=== PATIENT | female | born 1945 | race Caucasian/White ===

== ENCOUNTER 2016-03-18 12:38 | Emergency (ER) | payer MEDICARE, OTHER ==
[2016-03-18 12:48] VITALS: BP 165/99
--- NOTE | 2016-03-18 13:24 | UC ---
General HPI - HPI Summary HPI Summary: SUDDEN ONSET OF SHARP, SHOOTING LEFT SIDED FACIAL PAIN LAST NIGHT. EPISODES LASTING UP TO SEVERAL MINUTES THEN RESOLVE. NO CLEAR TRIGGER. NO NEW MEDS OR RECENT TRAUMA. NO FEVER. NO ARREDONDO. NO NAUSEA. NO URI SX. - History of Current Complaint Chief Complaint: UCGeneralIllness Stated Complaint: FACIAL PAIN Time Seen by Provider: 03/18/16 12:49 Hx Obtained From: Patient Onset/Duration: Sudden Onset, Lasting Hours, Still Present Timing: Intermittent Episodes Lasting: - MINUTES Onset Severity: Moderate Current Severity: None Pain Intensity: 5 Associated Signs & Symptoms: Negative: Dizziness, Fever, Headache, Nausea, Recent Medication Changes, Trauma, Weakness - Allergy/Home Medications Allergies/Adverse Reactions: Allergies Allergy/AdvReac Type Severity Reaction Status Date / Time No Known Allergies Allergy Verified 04/18/12 09:16 Home Medications: Home Medications Zoledronic Acid* [Zometa*] 03/18/16 [History] PMH/Surg Hx/FS Hx/Imm Hx Endocrine History Of: Reports: Thyroid Disease - CANCER Cancer History Of: Reports: Breast Cancer - left 1997 - Surgical History Surgical History: Yes Surgery Procedure, Year, and Place: stem cell replacement. total hip transplant left - Family History Known Family History: Positive: Other - CANCER - Social History Alcohol Use: Occasionally Substance Use Type: None Smoking Status (MU): Never Smoked Tobacco Review of Systems Constitutional: Negative Skin: Negative Respiratory: Negative Cardiovascular: Negative Gastrointestinal: Negative Neurological: Paresthesia - LEFT SIDE OF FACE All Other Systems Reviewed And Are Negative: Yes Physical Exam Triage Information Reviewed: Yes Appearance: Well-Appearing, No Pain Distress, Well-Nourished Vital Signs: Initial Vital Signs Temp 97.8 F 03/18/16 12:43 Pulse 114 03/18/16 12:43 Resp 18 03/18/16 12:43 BP 165/99 03/18/16 12:43 Pulse Ox 99 03/18/16 12:43 Vital Signs Reviewed: Yes Eyes: Positive: Conjunctiva Clear ENT: Positive: Hearing grossly normal, Pharynx normal, TMs normal Neck: Positive: Supple, Nontender, No Lymphadenopathy Respiratory Exam: Normal Cardiovascular Exam: Normal Abdomen Description: Positive: Soft Musculoskeletal: Positive: No Edema Neurological: Positive: Alert Psychological: Positive: Age Appropriate Behavior Skin: Negative: rashes Course/Dx - Differential Dx - Multi-Symptom Provider Diagnoses: TRIGEMINAL NEURALGIA Discharge - Discharge Plan Condition: Stable Disposition: HOME Prescriptions: Carbamazepine [Carbamazepine ER] 100 mg PO BID #60 tab Hydrocodone-Acetaminophen [Lorcet 5-325 mg] 1 tab PO QID PRN #20 tab MDD 4 PRN Reason: Pain Patient Education Materials: Trigeminal Neuralgia (ED) Referrals: Mona Martin MD [Primary Care Provider] - If Needed Additional Instructions: TRIGEMINAL NEURALGIA Trigeminal neuralgia (TN) is a condition that causes sudden and severe pain in parts of the face. TN is caused by a problem with the trigeminal nerve, which is a nerve that runs from the brain to the face. What are the symptoms of trigeminal neuralgia? TN causes sharp and stabbing pain in the cheek, lower face, or around the eye. The pain lasts a few seconds to a few minutes, and usually happens on only one side of the face. TN can also cause muscle spasms in the face that happen at the same time as the pain. Most people with TN have repeated episodes of pain. Often, certain movements or activities make the pain attacks happen. These can include: - Touching the face - Chewing - Talking - Brushing the teeth - Smiling or frowning - Cold air on the face Will I need tests? Maybe. Your doctor or nurse should be able to tell if you have TN by learning about your symptoms and doing an exam. He or she might do tests to get more information about your TN or what's causing it. These tests can include an MRI or CT scan of your brain. These are imaging tests that can create pictures of your brain. How is trigeminal neuralgia treated? TN is usually treated with medicine. Doctors can use different types of medicines to treat TN. Most often doctors prescribe a type of medicine normally used to prevent seizures. These medicines quiet the nerve signals that cause pain in TN. For most people, the medicine helps reduce the number of TN attacks they have and makes their pain less severe. But if medicines don't help enough or cause too many side effects, your doctor might talk with you about other treatment options. These include different types of surgical procedures that quiet the nerve and make it less likely to fire. These surgical treatments might help with symptoms, but side effects sometimes happen, including numbness or pain in the face. I HAVE SENT A RX FOR CARBAMAZEPINE TO YOUR PHARMACY. THIS IS OFTEN USED TO HELP WITH THE SYMPTOMS OF TRIGEMINAL NEURALGIA. PLEASE DISCUSS THIS DIAGNOSIS AND MEDICATION WITH DRS. MARTIN AND ROMÁN IT CAN INTERFERE WITH YOUR THYROID MEDICATION AND TAMOXIFEN. HYDROCODONE/APAP GIVEN TO HELP WITH PAIN FOR NOW.
== END 2016-03-18 13:40 | disposition home or self-care (01) ==
LOC: UCEAST 12:38
DX: G50.0 Trigeminal neuralgia (principal)
CPT/HCPCS: 99212; G0463

== ENCOUNTER 2017-01-17 09:23 | Emergency (ER) | payer MEDICARE, OTHER ==
[2017-01-17 09:37] VITALS: BP 165/87
--- NOTE | 2017-01-17 09:59 | UC ---
Respiratory Complaint HPI - HPI Summary HPI Summary: Pt presents with a 2 days history of sinus pain/pressure/congestion, headache, and dry cough. She says that she has a history of sinusitis for many years. Currently undergoing tx for breast cancer. Has not tried anything OTC. Denies SOB, chest pain, N/V/D/C, or sore throat. - History of Current Complaint Chief Complaint: UCRespiratory Stated Complaint: URI Time Seen by Provider: 01/17/17 09:59 Hx Obtained From: Patient Onset/Duration: Gradual Onset Severity Initially: Mild Severity Currently: Moderate Pain Intensity: 5 Pain Scale Used: 0-10 Numeric Character: Cough: Nonproductive Associated Signs And Symptoms: Positive: Chills, URI - Allergies/Home Medications Allergies/Adverse Reactions: Allergies Allergy/AdvReac Type Severity Reaction Status Date / Time BANDAIDS Allergy Rash And Uncoded 01/17/17 09:37 Itching PMH/Surg Hx/FS Hx/Imm Hx Previously Healthy: Yes Cancer History: Breast Cancer - Surgical History Surgical History: Yes Surgery Procedure, Year, and Place: stem cell replacement. total hip transplant left. LEFT BREAST LUMPECTOMY 2000 - Family History Known Family History: Positive: Other - CANCER - Social History Alcohol Use: Occasionally Substance Use Type: None Smoking Status (MU): Never Smoked Tobacco Review of Systems Constitutional: Chills Skin: Negative Eyes: Negative ENT: Nasal Discharge, Sinus Congestion, Sinus Pain/Tenderness Respiratory: Cough Cardiovascular: Negative Gastrointestinal: Negative Is Patient Immunocompromised?: Yes All Other Systems Reviewed And Are Negative: Yes Physical Exam Triage Information Reviewed: Yes Appearance: Well-Appearing, Well-Nourished Vital Signs: Initial Vital Signs Temp 96.8 F 01/17/17 09:33 Pulse 112 01/17/17 09:33 Resp 18 01/17/17 09:33 BP 165/87 01/17/17 09:33 Pulse Ox 97 01/17/17 09:33 Vital Signs Reviewed: Yes Eyes: Positive: Conjunctiva Clear ENT: Positive: Hearing grossly normal, Pharynx normal, Nasal congestion, Nasal drainage, TMs normal, Sinus tenderness, Uvula midline. Negative: Pharyngeal erythema, TM bulging, TM dull, TM red, Tonsillar swelling, Tonsillar exudate Neck: Positive: Supple, Nontender, No Lymphadenopathy Respiratory: Positive: Chest non-tender, Lungs clear, Normal breath sounds, No respiratory distress, No accessory muscle use Cardiovascular: Positive: RRR, No Murmur, Pulses Normal Neurological: Positive: Alert Psychological: Positive: Age Appropriate Behavior Skin: Negative: rashes UC Diagnostic Evaluation - Laboratory O2 Sat by Pulse Oximetry: 97 Respiratory Course/Dx - Course Course Of Treatment: Sinusitis - Amoxicillin - Differential Dx/Diagnosis Differential Diagnosis/HQI/PQRI: Asthma, Bronchitis, Influenza, Sinusitis Provider Diagnoses: Sinusitis. Acute bronchitis Discharge - Discharge Plan Condition: Stable Disposition: HOME Prescriptions: Amoxicillin PO (*) [Amoxicillin 500 MG CAP*] 500 mg PO Q12H #20 cap Patient Education Materials: Sinusitis (ED) Referrals: Mona Martin MD [Primary Care Provider] - Additional Instructions: 1) Mucinex OTC twice a day in addition to antibiotic 2) Rest and drink plenty of water! If you develop a fever, SOB, chest pain, new or worsening symptoms - please call your PCP or go to the ED. Your blood pressure was high at todays visit. Please see your primary provider within 4 weeks for recheck and re-evaluation.
== END 2017-01-17 10:15 | disposition home or self-care (01) ==
LOC: UCEAST 09:23
DX: J32.9 Chronic sinusitis, unspecified (principal); J20.9 Acute bronchitis, unspecified; C50.919 Malignant neoplasm of unspecified site of unspecified female breast
CPT/HCPCS: 99212; G0463

== ENCOUNTER 2017-02-07 09:17 | Emergency (ER) | payer MEDICARE, OTHER ==
[2017-02-07 09:31] VITALS: BP 149/86
--- NOTE | 2017-02-07 10:21 | UC ---
Respiratory Complaint HPI - HPI Summary HPI Summary: 71 y/o female presents to the urgent care c/o dry cough and sinus congestion for the past 3 weeks. Sinus pain with ARREDONDO is 5/10. She has been taking OTC meds w /o any improvement of symptoms. Pt denies fever, SOB, chest pain, N/V/D. - History of Current Complaint Hx Obtained From: Patient ?: No Onset/Duration: Gradual Onset, Lasting Weeks - 3 weeks, Still Present, Worse Since - last week Timing: Constant Severity Initially: Mild Severity Currently: Moderate Pain Intensity: 5 Pain Scale Used: 0-10 Numeric Character: Cough: Nonproductive Aggravating Factors: Recumbent Position Alleviating Factors: OTC Meds Associated Signs And Symptoms: Positive: URI, Nasal Congestion, Sinus Discomfort. Negative: Fever, Chills, Pleuritic Chest Pain - Risk Factors Pulmonary Embolism Risk Factors: Negative Cardiac Risk Factors: Negative Pseudomonas Risk Factors: Negative Tuberculosis Risk Factors: Negative <Jailene Aguilar - Last Filed: 02/08/17 19:30> <Windy Williamson - Last Filed: 02/09/17 09:14> - History of Current Complaint Chief Complaint: UCRespiratory Stated Complaint: COUGH Time Seen by Provider: 02/07/17 10:20 - Allergies/Home Medications Allergies/Adverse Reactions: Allergies Allergy/AdvReac Type Severity Reaction Status Date / Time BANDAIDS Allergy Rash And Uncoded 02/07/17 09:27 Itching PMH/Surg Hx/FS Hx/Imm Hx Previously Healthy: Yes Endocrine History: Hypothyroidism Cancer History: Breast Cancer Other Cancer History: Thyroid Cancer - Surgical History Surgical History: Yes Surgery Procedure, Year, and Place: stem cell replacement. total hip transplant left. LEFT BREAST LUMPECTOMY 2000 - Family History Family History: Breast cancer - Social History Occupation: Retired Lives: With Family Alcohol Use: Occasionally Substance Use Type: None Smoking Status (MU): Never Smoked Tobacco <Jailene Aguilar - Last Filed: 02/08/17 19:30> Review of Systems Constitutional: Negative Skin: Negative Eyes: Negative ENT: Negative, Nasal Discharge, Sinus Congestion, Sinus Pain/Tenderness Respiratory: Cough Cardiovascular: Negative Gastrointestinal: Negative Genitourinary: Negative Motor: Negative Neurovascular: Negative Musculoskeletal: Negative Neurological: Negative Psychological: Negative Is Patient Immunocompromised?: No All Other Systems Reviewed And Are Negative: Yes <Jailene Aguilar - Last Filed: 02/08/17 19:30> Physical Exam Triage Information Reviewed: Yes Vital Signs: Initial Vital Signs Temp 98.5 F 02/07/17 09:28 Pulse 115 02/07/17 09:28 Resp 16 02/07/17 09:28 BP 149/86 02/07/17 09:28 Pulse Ox 96 02/07/17 09:28 - Additional Comments Vitals: reviewed General: Well developed, well-nourished female patient with NAD. Head and face: Normocephalic and atraumatic, Positive tenderness over the frontal and maxillary sinuses.. Eyes: PERRLA, EOMI x 2. Normal conjunctiva. No eye discharge. ENT: Ears and TM with normal limits. Nose: with yellowish discharge and erythematous mucosa. Pharynx with erythema , no exudate. Neck: Supple, no JVD, no carotid bruits and no lymphadenopathy. Lungs: clear, no rales, no rhonchi, no wheezes. CVS: RRR, S1 and S2 present no murmurs or gallops appreciated. Abdomen: soft nontender with positive bowel sounds. Extremities: no edema noted. Neuro: WNL. Skin: warm and dry <Jailene Aguilar - Last Filed: 02/08/17 19:30> Vital Signs: Initial Vital Signs Temp 98.5 F 02/07/17 09:28 Pulse 115 02/07/17 09:28 Resp 16 02/07/17 09:28 BP 149/86 02/07/17 09:28 Pulse Ox 96 02/07/17 09:28 <Windy Williamson - Last Filed: 02/09/17 09:14> Diagnostic Evaluation - Laboratory O2 Sat by Pulse Oximetry: 96 <Jailene Aguilar - Last Filed: 02/08/17 19:30> Respiratory Course/Dx - Course Course Of Treatment: 71 y/o female presents to the urgent care c/o dry cough and sinus congestion for the past 3 weeks. Sinus pain with ARREDONDO is 5/10. She has been taking OTC meds w/o any improvement of symptoms. Pt denies fever, SOB, chest pain, N/V/D.Hx obtained. Pt with acute sinusitis on examination.Pt with 3 weeks of symptoms getting worse. Pt Rx Augmentin PO and flonase nasal spray. Tessalon PO for cough. Pt's BP is elevated today advised to decrease salt in diet, monitor BP and f/u with PCP for further management. Advised if she develoeps SOB, chest pain,to go immediately to the ER. Discharge instructions explained to Pt. Advised to Return to the clinic or PCP if symptoms if not improvement.Pt understood and agreed with plan of care.Left the clinic ambulating and hemodynamically stable - Differential Dx/Diagnosis Differential Diagnosis/HQI/PQRI: Asthma, Bronchitis, Influenza, Laryngitis, Lower Resp Infection, Sinusitis, Other - pharyngitis, URI Provider Diagnoses: 1- acute bacterial pharyngitis. 2-Cough <Jailene Aguilar - Last Filed: 02/08/17 19:30> Discharge <Jailene Aguilar - Last Filed: 02/08/17 19:30> <Windy Williamson - Last Filed: 02/09/17 09:14> - Discharge Plan Condition: Stable Disposition: HOME Prescriptions: Amoxicillin/Clavulanate TAB* [Augmentin TAB 875*] 875 mg PO BID #20 tab Benzonatate CAP* [Tessalon 100 MG CAP*] 100 mg PO TID PRN #15 cap PRN Reason: Cough Fluticasone NASAL SPRAY 50MCG* [Flonase NASAL SPRAY 50MCG*] 2 spray BOTH NARES DAILY #1 btl Patient Education Materials: Sinusitis (ED), Low Sodium Diet (ED) Referrals: Mona Martin MD [Primary Care Provider] - If Needed Additional Instructions: 1- Please increase fluid intake and rest. take full course of antibiotic to avoid resistance 2-Use Flonase as directed to help drain fluid. Also buy saline drops to clear sinuses 3-Take Tassalon tabs PO to alleviates cough. Increase fluid intake, rest, use a humidifier at night time 4-Return to the clinic or PCP if symptoms do not improve for further management and treatment 5- Your BP is elevated today, please decrease salt in your diet, monitor your BP and if it continues to be elevated f/u with your PCP for further management Attestation Statement User Type: Provider - I was available for consult. This patient was seen by the JOSIAH. The patient was not presented to, seen by, or examined by me. -Lanre <Windy Williamson - Last Filed: 02/09/17 09:14>
== END 2017-02-07 10:46 | disposition home or self-care (01) ==
LOC: UCEAST 09:17
DX: J02.9 Acute pharyngitis, unspecified (principal); R05 Cough; E03.9 Hypothyroidism, unspecified; Z85.3 Personal history of malignant neoplasm of breast; Z85.850 Personal history of malignant neoplasm of thyroid; Z96.642 Presence of left artificial hip joint
CPT/HCPCS: 99212; G0463

== ENCOUNTER 2017-03-14 08:00 | Day surgery (SDC) | payer MEDICARE, OTHER ==
[~2017-03-14 08:00] MED LIST: Acetaminophen TAB* 325 MG PO PRN; Buffered Lidocaine 0.9% SYRIN* 5 ML/SYR SYRINGE INTRADERM ONE; Midazolam* 1 MG/ML 2 ML VIAL (2 MG) ONE
[2017-03-14 10:19] VITALS: BP 136/65
--- NOTE | 2017-03-14 10:50 | OP ---
DATE OF OPERATION: 03/14/2017. DATE OF : 1945. SURGEON: Johnathan Garcia M.D. PREOPERATIVE DIAGNOSIS: Cataract right eye. POSTOPERATIVE DIAGNOSIS: Cataract right eye. OPERATIVE PROCEDURE: Extracapsular cataract extraction with intraocular lens implant right eye. PROCEDURE: The patient was brought to the operating room after being given 1/2% Alcaine with epineph rine drops in the preoperative area. The eye was prepped and draped in the usual sterile fashion. S terile drape and eyelid speculum were placed. Again, topical 1/2% Alcaine with epinephrine was given . A paracentesis incision was made at the 9 o'clock position with the No.75 blade. Clear cornea inc ision 2.2 x 2.2-mm was created at the 12 o'clock position starting at the anterior limbus using the 2 .2-mm keratome. The anterior chamber was irrigated with 0.4 mL of 1% non-preservative intracameral l idocaine and filled with DisCoVisc. A capsulorrhexis was completed using the cystotome and the Utrat a forceps. Hydrodissection was performed with balanced salt solution. The lens nucleus was removed w ith the Phacoemulsification handpiece without incident. Cortex was removed with the irrigation-aspir ation handpiece. The capsular bag was re-inflated using DisCoVisc and an [id number] implant was insert ed with the shooter. The irrigation-aspiration handpiece was used to remove all residual DisCoVisc. The eye was refilled with balanced salt solution and the wound checked and found to be watertight. Topical Maxitrol drops were given. [id number]/[facility] #: [id number]
[2017-03-14] MEDS ORDERED: acetaZOLAMIDE TAB* 250 MG ONE (11:38)
[2017-03-14] MEDS ORDERED: Lidocaine 1% MPF* 2 ML VIAL ONE (11:38)
[2017-03-14] MEDS ORDERED: Povidone Iodine 5% OPTH* 30 ML BTL ONE (11:38)
[2017-03-14] MEDS ORDERED: Lidocaine 2% EPI 1:200000 MPF* 20 ML VIAL ONE (11:38)
[2017-03-14] MEDS ORDERED: Ketorolac 0.5% OPHTH (NF) 0.5 % 5 ML BTL ONE (11:38)
[2017-03-14] MEDS ORDERED: Phenylephrine 2.5% OPTH.SOL* 2 ML BTL ONE (11:38)
[2017-03-14] MEDS ORDERED: Neomycin/Polymy/Dex OPTH.SUSP* MAXITROL 0.1% 5 ML ONE (11:38)
[2017-03-14] MEDS ORDERED: Cyclopentolate 1% OPTH.SOL* 2 ML BTL ONE (11:38)
[2017-03-14] MEDS ORDERED: Proparacaine 0.5% OPHTH.SOL* 15 ML BTL ONE (11:39)
== END 2017-03-14 10:05 | disposition home or self-care (01) ==
LOC: OREAST 08:00
PROVIDERS: ATTEND Specialist
DX: H25.811 Combined forms of age-related cataract, right eye (principal); H43.813 Vitreous degeneration, bilateral; H44.23 Degenerative myopia, bilateral; Z85.3 Personal history of malignant neoplasm of breast; E03.9 Hypothyroidism, unspecified; Z85.850 Personal history of malignant neoplasm of thyroid; D69.6 Thrombocytopenia, unspecified; Z85.118 Personal history of other malignant neoplasm of bronchus and lung; B37.9 Candidiasis, unspecified
CPT/HCPCS: A9270-GY; J2250; V2632

== ENCOUNTER 2017-03-21 06:45 | Day surgery (SDC) | payer MEDICARE, OTHER ==
[~2017-03-21 06:45] MED LIST changes: -Midazolam* 1 MG/ML 2 ML VIAL (2 MG) ONE
[2017-03-21] MEDS ORDERED: Phenylephrine 2.5% OPTH.SOL* 2 ML BTL ONE (07:20)
[2017-03-21] MEDS ORDERED: Lidocaine 1% MPF* 2 ML VIAL ONE (07:20)
[2017-03-21] MEDS ORDERED: Lidocaine 2% EPI 1:200000 MPF* 20 ML VIAL ONE (07:20)
[2017-03-21] MEDS ORDERED: Povidone Iodine 5% OPTH* 30 ML BTL ONE (07:20)
[2017-03-21] MEDS ORDERED: Cyclopentolate 1% OPTH.SOL* 2 ML BTL ONE (07:20)
[2017-03-21] MEDS ORDERED: Ketorolac 0.5% OPHTH (NF) 0.5 % 5 ML BTL ONE (07:20)
[2017-03-21] MEDS ORDERED: Neomycin/Polymy/Dex OPTH.SUSP* MAXITROL 0.1% 5 ML ONE (07:20)
[2017-03-21] MEDS ORDERED: acetaZOLAMIDE TAB* 250 MG ONE (07:20)
[2017-03-21] MEDS ORDERED: Proparacaine 0.5% OPHTH.SOL* 15 ML BTL ONE (07:20)
[2017-03-21] MEDS ORDERED: Midazolam* 1 MG/ML 2 ML VIAL (2 MG) ONE (07:21)
[2017-03-21 08:29] VITALS: BP 118/77
--- NOTE | 2017-03-21 21:44 | OP ---
DATE OF OPERATION: 03/21/17 [facility] DATE OF : [birth year] SURGEON: Johnathan Garcia M.D. PREOPERATIVE DIAGNOSIS: Cataract, left eye. POSTOPERATIVE DIAGNOSIS: Cataract, left eye. OPERATIVE PROCEDURE: Extracapsular cataract extraction with IOL left eye. DESCRIPTION OF PROCEDURE: The patient was brought to the operating room after being given 1/2% Alcaine with epinephrine drops in the preoperative area. The eye was prepped and draped in the usual sterile fashion. Sterile drape and eyelid speculum were placed. Again, topical 1/2% Alcaine with epinephrine was given. A paracentesis incision was made at the 3 o'clock position with the No.75 blade. Clear cornea incision 2.2 x 2.2-mm was created at the 6 o'clock position starting at the anterior limbus using the 2.2-mm keratome. The anterior chamber was irrigated with 0.4 mL of 1% non-preservative intracameral lidocaine and filled with DisCoVisc. A capsulorrhexis was completed using the cystotome and the Utrata forceps. Hydrodissection was performed with balanced salt solution. The lens nucleus was removed with the Phacoemulsification handpiece without incident. Cortex was removed with the irrigation-aspiration handpiece. The capsular bag was re-inflated using DisCoVisc and an [id number] implant was inserted with the shooter. The irrigation-aspiration handpiece was used to remove all residual DisCoVisc. The eye was refilled with balanced salt solution and the wound checked and found to be watertight. Topical Maxitrol drops were given. [id number]/[facility] #: [id number] [facility]
== END 2017-03-21 08:31 | disposition home or self-care (01) ==
LOC: OREAST 06:45
PROVIDERS: ATTEND Specialist
DX: H25.812 Combined forms of age-related cataract, left eye (principal); H43.813 Vitreous degeneration, bilateral; H44.23 Degenerative myopia, bilateral; Z85.3 Personal history of malignant neoplasm of breast; Z85.850 Personal history of malignant neoplasm of thyroid; Z85.118 Personal history of other malignant neoplasm of bronchus and lung; Z85.830 Personal history of malignant neoplasm of bone
CPT/HCPCS: A9270-GY; J2250; V2632

== ENCOUNTER 2017-12-02 13:07 | Emergency (ER) | payer MEDICARE, OTHER ==
[2017-12-02 13:18] VITALS: BP 133/80
--- NOTE | 2017-12-02 13:19 | UC ---
Lower Extremity/Ankle HPI - HPI Summary HPI Summary: 72 yo female presents with left ankle pain. She tells me that 9 days ago she was helping her carry a piece of wood when she dropped it onto the front of her LEFT lower kearns/ankle. Says that it hurt for about 30 minutes, but then pain resolved. Since that time she has developed bruising and swelling to the area. She had been icing and elevating it daily. She is ambulatory and WBing without pain. She admits that she would not have come today, but her family is concerned about a fracture or blood clot. She does have a hx of cancer and is currently on tamoxifen. No recent travel, SOB, chest pain. - History of Current Complaint Chief Complaint: UCLowerExtremity Stated Complaint: ANKLE AND LEG INJURY Time Seen by Provider: 12/02/17 13:12 Hx Obtained From: Patient Severity Currently: None Pain Intensity: 0 Able to Bear Weight: Yes - Allergies/Home Medications Allergies/Adverse Reactions: Allergies Allergy/AdvReac Type Severity Reaction Status Date / Time BANDAIDS Allergy Rash And Uncoded 12/02/17 13:18 Itching PMH/Surg Hx/FS Hx/Imm Hx - Additional Past Medical History Additional PMH: BRCA Endocrine History: Hypothyroidism - Surgical History Surgical History: Yes Surgery Procedure, Year, and Place: triple stem cell replacement. total hip transplant left. LEFT BREAST LUMPECTOMY 2000 - Family History Known Family History: Positive: Other - CANCER Family History: Breast cancer - Social History Occupation: Retired Lives: With Family Alcohol Use: Occasionally Substance Use Type: None Smoking Status (MU): Never Smoked Tobacco Review of Systems Constitutional: Negative Skin: Bruising Respiratory: Negative Cardiovascular: Negative Neurovascular: Negative Musculoskeletal: Other: - Left ankle bruising and edema Neurological: Negative Psychological: Negative All Other Systems Reviewed And Are Negative: Yes Physical Exam - Summary Physical Exam Summary: GENERAL: NAD. WDWN. No pain distress. SKIN: LEFT ANKLE: Moderate edema and ecchymosis just superior to ankle joint and also at inferior lateral and medial malleolus. No palpable cord or calf edema. NECK: Supple. Nontender. No lymphadenopathy. CHEST: No accessory muscle use. Breathing comfortably and in no distress. CV: Pulses intact. Cap refill <2seconds MSK: LEFT ANKLE AND FOOT: FROM. NTTP. Jeff's negative. NEURO: Alert. PSYCH: Age appropriate behavior. Triage Information Reviewed: Yes Vital Signs: Initial Vital Signs Temp 97.7 F 12/02/17 13:12 Pulse 114 12/02/17 13:12 Resp 16 12/02/17 13:12 BP 133/80 12/02/17 13:12 Pulse Ox 96 12/02/17 13:12 Vital Signs Reviewed: Yes Lower Extremity Course/Dx - Course Course Of Treatment: XR: IMPRESSION: OSTEOARTHRITIS. NO ACUTE OSSEOUS INJURY. IF SYMPTOMS PERSIST, RECOMMEND REPEAT IMAGING. Suspect contusion of foot/ ankle. Given her history of cancer and injury, there is a concern for DVT - although the area of concern is more about the ankle than it is the leg. does not have ultrasound available at the time of this encounter. I discussed this with the pt and she did not want to go to the ED for an ultrasound. She will call her PCP tomorrow and schedule a visit for a recheck and potential outpatient U/S order. I advised her that if her swelling starts to come up her leg into her calf or if she develops pain, SOB, chest pain, or redness to the leg/ankle - to not wait and to go to the ED. She voiced understanding and is in agreement with the plan. - Differential Dx/Diagnosis Provider Diagnoses: Left ankle and foot contusion Discharge - Sign-Out/Discharge Documenting (check all that apply): Patient Departure All imaging exams completed and their final reports reviewed: Yes - Discharge Plan Condition: Stable Disposition: HOME Patient Education Materials: Foot Contusion (ED), Swollen Joint (ED) Referrals: Mona Martin MD [Primary Care Provider] - Additional Instructions: If you develop a fever, shortness of breath, chest pain, new or worsening symptoms - please call your PCP or go to the ED. 1) Please continue to elevate and ice your foot 2) Schedule a follow up appointment with your Primary Doctor for a recheck this week - Billing Disposition and Condition Condition: STABLE Disposition: Home
--- NOTE | 2017-12-02 13:52 | RAD ---
HISTORY: Pain. Crush inj COMPARISONS: None VIEWS: 3 , Frontal, lateral, and oblique views of the left ankle FINDINGS: BONE DENSITY: Normal. BONES: There is no displaced fracture. There are plantar and posterior calcaneal enthesophytes. JOINTS: There is osteoarthritis of the midfoot. ALIGNMENT: There is no dislocation. SOFT TISSUES: Unremarkable. OTHER FINDINGS: None. IMPRESSION: OSTEOARTHRITIS. NO ACUTE OSSEOUS INJURY. IF SYMPTOMS PERSIST, RECOMMEND REPEAT IMAGING.
== END 2017-12-02 14:15 | disposition home or self-care (01) ==
LOC: UCEAST 13:07
DX: S90.02XA Contusion of left ankle, initial encounter (principal); S90.32XA Contusion of left foot, initial encounter; W20.8XXA Other cause of strike by thrown, projected or falling object, initial encounter; Y93.89 Activity, other specified; Y92.9 Unspecified place or not applicable; M19.072 Primary osteoarthritis, left ankle and foot; Z96.642 Presence of left artificial hip joint; Z94.84 Stem cells transplant status; Z85.3 Personal history of malignant neoplasm of breast
CPT/HCPCS: 99211; G0463

== ENCOUNTER 2018-03-25 05:45 | Day surgery (SDC) | payer MEDICARE, OTHER ==
--- NOTE | 2018-03-15 13:23 | HP ---
PREOPERATIVE HISTORY AND PHYSICAL: DATE OF ADMISSION/SURGERY: 03/25/18 DATE OF OFFICE VISIT: 03/15/18 ATTENDING SURGEON: Dr. Nathan James.* (DICTATED BY JERROD JACKSON) PROCEDURE: Right knee arthroscopic surgery. CHIEF COMPLAINT: Right knee pain. HISTORY OF PRESENT ILLNESS: Jenna is a 72-year-old female, who presents to the clinic for right knee pain due to osteoarthritis. She describes a deep aching pain as well as locking and swelling. She has failed conservative measures to include knee exercises and therefore agreed to undergo a right knee arthroscopic surgery with Dr. James on 03/25/18 for possible treatment of meniscus or removal of loose body. PAST MEDICAL HISTORY: Breast cancer. She has spine and lung mets at the time of diagnosis. She was treated with chemo and stem cell transplant. She was on tamoxifen for 15+ years. History of thyroid cancer, treated with thyroidectomy and LEONARD. She also has seasonal allergies. PAST SURGICAL HISTORY: Cataracts, 2017; thyroidectomy, 2006; left total hip replacement, 2002; breast lumpectomy, 1997; triple stem cell transplant. The patient denies prior complications with anesthesia. MEDICATIONS: 1. Neurontin 300 mg 1 by mouth at night. 2. Fluticasone propionate 50 mcg per act 2 sprays each nostril as needed. 3. EpiPen 2-Freddie 0.3 mg/0.3 mL, 1 subcu as needed. 4. Zometa 4 mg/5 mL once every 6 months. 5. Tamoxifen 20 mg 1 by mouth daily. 6. Levothyroxine 125 mcg 1 tab x5 days, one-half tab x2 days. ALLERGIES: No known drug allergies. She is allergic to BEE STING and BAND- AIDS. FAMILY HISTORY: Positive for heart disease in her father and cancer. Denies family history of DVT or PE. SOCIAL HISTORY: She is . She resides in [place]. She is retired. She denies smoking. She reports occasional alcohol consumption. She denies illegal drug use. REVIEW OF SYSTEMS: A 14-point review of systems was reviewed with the patient. Positive for current complaint, otherwise negative. Denies fever, chills, chest pain, shortness of breath, history of DVT or PE, history of bleeding disorder. PHYSICAL EXAMINATION GENERAL: A 72-year-old well-developed, well-nourished female, in no acute distress. VITAL SIGNS: Height 67, weight 172, pulse 80, blood pressure 134/78, respiratory rate 20, temperature 97.5, BMI 26.9. HEENT: Normocephalic, atraumatic. PERRLA. Throat clear. NECK: Supple. PULMONARY: Lungs are clear to auscultation bilaterally. No wheezing, rhonchi, or rales. CARDIO: Regular rate and rhythm. S1, S2. No murmurs, gallops, or rubs. No edema. ABDOMEN: Positive bowel sounds. Soft, nontender. NEURO: Alert and oriented x3. Cranial nerves grossly intact. MUSCULOSKELETAL: Right lower extremity: Range of motion 3 to 130. Tenderness over the medial and lateral joint lines as well as the pes anserine area. Stable to varus and valgus stress. Stable Roseann and negative posterior drawer. Calf soft, nontender. Mild effusion. +5/5 strength to ankle dorsiflexion and plantarflexion. +2 DP pulse. Sensation intact to light touch distally. DIAGNOSTIC STUDIES: Previous x-rays revealed tricompartmental osteoarthritic changes with joint space narrowing and osteophyte formation. IMPRESSION: Right knee osteoarthritis. PLAN: The patient is scheduled to undergo a right knee arthroscopic surgery with Dr. James on 03/25/18. She will follow up 10 to 14 days postop for followup and suture removal. Percocet will be used for postop pain management. JERROD JACKSON [id number]/[facility] [place] #: [id number] [facility]ITALNatividad
[~2018-03-25 05:45] MED LIST changes: -Acetaminophen TAB* 325 MG PO PRN; -Buffered Lidocaine 0.9% SYRIN* 5 ML/SYR SYRINGE INTRADERM ONE; +Buffered Lidocaine 1% SYRIN* 1 ML/SYRINGE INTRADERM ONE
[2018-03-25] MEDS ORDERED: Dexamethasone IV* 4 MG/ML 1 ML (4 MG) IV SLOW PU ONE (06:00)
[2018-03-25] MEDS ORDERED: Famotidine IV* 10 MG/ML 2 ML (20 mg) IV ONE (06:00)
[2018-03-25] MEDS ORDERED: Lactated Ringers 1000 ML Bag* 1,000 ML IV SCH (06:00)
[2018-03-25] MEDS ORDERED: Famotidine IV* 10 MG/ML 2 ML (20 mg) ONE (06:37)
[2018-03-25] MEDS ORDERED: Dexamethasone IV* 4 MG/ML 1 ML (4 MG) ONE (06:37)
[2018-03-25] MEDS ORDERED: ceFAZolin 2 GM PREMIX in ORs 2 GM/50 ML BAG IVPB ONE (06:38)
[2018-03-25] MEDS ORDERED: Buffered Lidocaine 1% SYRIN* 1 ML/SYRINGE INTRADERM ONE (06:38)
[2018-03-25] MEDS ORDERED: EPINEPHRINE 1 MG/ML 1 ML VIAL ONE (07:12)
[2018-03-25] MEDS ORDERED: Midazolam* 1 MG/ML 2 ML VIAL (2 MG) ONE (07:20)
[2018-03-25] MEDS ORDERED: fentaNYL* 50 MCG/ML 2 ML VIAL (100 MCG VIAL) ONE (07:20)
[2018-03-25] MEDS ORDERED: Lidocaine 1% INJ* 10 MG/ML 30 ML SDV ONE (07:25)
[2018-03-25] MEDS ORDERED: Bupivacaine 0.25% W/EPI* 10 ML SDV ONE ×2 (07:25→07:26)
[2018-03-25] MEDS ORDERED: Propofol* 10 MG/ML 20 ML BTL ONE (07:47)
[2018-03-25] MEDS ORDERED: Lidocaine 2% PF * 5 ML VIAL ONE (07:47)
[2018-03-25] MEDS ORDERED: Naloxone* 0.4 MG/ML 1 ML VIAL IV PRN (07:50)
[2018-03-25] MEDS ORDERED: PROCHLORPERAZINE INJ 5 MG/ML 2 ML VIAL IV PRN (07:50)
[2018-03-25] MEDS ORDERED: DiMENhydriNATE IV* 50 MG/ML VIAL IV PUSH PRN (07:50)
[2018-03-25] MEDS ORDERED: HYDROcodone/ACETAMIN 5-325 MG* 1 TAB PO PRN (07:50)
[2018-03-25] MEDS ORDERED: fentaNYL* 50 MCG/ML 2 ML VIAL (100 MCG VIAL) IV PRN (07:50)
[2018-03-25] MEDS ORDERED: Ketorolac INJ* 30 MG/ML 1 ML VIAL IV PRN (07:50)
[2018-03-25] MEDS ORDERED: Acetaminophen TAB* 325 MG PO PRN (07:50)
[2018-03-25] MEDS ORDERED: Phenylephrine INJ* 10 MG/ML 1 ML VIAL (10 MG) ONE (07:53)
[2018-03-25] MEDS ORDERED: Dexamethasone IV* 4 MG/ML 5 ML VIAL (20 MG) ONE (08:02)
[2018-03-25] MEDS ORDERED: Ondansetron INJ* 2 MG/ML VIAL ONE (08:05)
[2018-03-25 09:51] VITALS: BP 140/91
--- NOTE | 2018-03-25 12:01 | OP ---
OPERATIVE REPORT: DATE OF OPERATION: 03/25/18 DATE OF : 43 SURGEON: Nathan James MD. SLIMER: JERROD Cardenas. ANESTHESIA: General. PRE-OP DIAGNOSIS: Osteoarthritis with lateral meniscus tear, right knee. POST-OP DIAGNOSES: 1. Osteoarthritis with lateral meniscus tear, right knee. 2. Loose bodies, right knee. OPERATIVE PROCEDURE: 1. Right knee arthroscopy. 2. Partial lateral meniscectomy. 3. Removal of loose bodies. 4. Chondroplasty. ESTIMATED BLOOD LOSS: Minimal. COMPLICATIONS: None. SUMMARY: Ms. Elias is a 72-year-old female who has known osteoarthritic changes of the knee. She w ould have a complaint of occasionally the knee getting caught and stuck and having significant pain w hen that occurs. The knee would then be painful and swollen for several days and then it would resol ve and then the knee would be essentially asymptomatic. She also had some troubles with irritation o f the peroneal branch of her sciatic nerve, but that was treated with Neurontin and that has come mahsa ng nicely. She has had multiple episodes of the knee catching and locking with significant pain and I discussed with her that an arthroscopy should work well as I thought that this was a large degenera tive tear of the meniscus and addressing that meniscus tear should work well to decrease her pain and improve her function. Risks of surgery such as infection, scar formation, stiffness, DVT, pulmonary embolism and continued catching and locking of the knee were discussed. I also pointed out that the arthroscopy would not address her arthritic changes but rather just get rid of the catching and locki ng sensation. She had been declared medically optimized and wished to proceed with the procedure. DESCRIPTION OF PROCEDURE: The patient was brought to the OR and general anesthesia was introduced. Right knee was prepped and then draped. Portal sites were pre- injected using a mixture of 0.25% Mar leonila with epinephrine and 1% lidocaine. A standard lateral portal was made first using an 11 blade and blunt trocar with the sheath was easily introduced into the knee. I was unable to easily pass un areli the patella and this was not forced. Looking around, I was nicely sitting in the notch with quit e a bit of synovitis. Under direct vision, the medial portal was made and a shaver was used to take down some of the synovitis. Extensive fraying and damage in the medial compartment of the femoral ca rtilage was present and a shaver was used to gently debride this and do a chondroplasty until the car tilage remaining was not hanging in fronds. Coming into the notch, she had one densely adhered, jet of bone spur coming up and then she had 2 loose bodies which would flow in and out of the notch. The se were eventually removed using a grasper and pictures of them were taken. Coming into the lateral compartment, she did have a parrot beak tear of the lateral meniscus which was addressed using the sh aver that also had exposed bone on the tibial plateau and pictures of this were taken. Coming back u p, she had an extensive spur coming downwards which was very congruent with the femoral notch and thi s is why I was unable to get into the patellofemoral joint. A shaver was used to taken down some of the spur so that it would not catch and impinge on the soft tissues. A second look revealed no addit ional pathology. All instrumentation was removed. The portal sites were closed using 4-0 nylon sutu res. Knee was injected with a total of 30 cc of a 50:50 mixture of 0.25% Marcaine with lidocaine and 12 mg of dexamethasone. Sterile dressing and a Cryo/Cuff were applied in the OR. The patient then h ad the LMA removed in the OR and was stable on transfer to the recovery room. 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 She tolerated the procedure well and there were no complications. She is currently being woken up. She has been transferred here to the recovery room and once she can tolerate p.o. with he r pain well controlled and void, she will be discharged home. Prescription for [place] will be e- scri bed in. She has been instructed to keep her dressing clean, dry and intact for the next 3 days but a fter that may take her dressing down, cover sutures with Band- Aid, may shower, wash and get it wet b ut should not soak it. I would like to see her in the office in approximately 10 days for removal of sutures and make sure she is doing well. If there are any problems or anything odd should occur ther e are instructions to give the office a call. [id number]/[facility] #: [id number]
== END 2018-03-25 09:51 | disposition home or self-care (01) ==
LOC: OR 05:45
PROVIDERS: ATTEND Orthopaedic Surgery
DX: M23.200 Derangement of unspecified lateral meniscus due to old tear or injury, right knee (principal); M17.11 Unilateral primary osteoarthritis, right knee; M23.41 Loose body in knee, right knee; Z85.850 Personal history of malignant neoplasm of thyroid; Z85.118 Personal history of other malignant neoplasm of bronchus and lung; J30.89 Other allergic rhinitis
CPT/HCPCS: J0690; J1100; J2250; J2405; J2704; J3010

== ENCOUNTER 2020-05-18 06:11 | Observation (INO) ==
[~2020-05-18 06:11] MED LIST changes: +Buffered Lidocaine 1% SYRIN 1 ml INTRADERM ONE; -Buffered Lidocaine 1% SYRIN* 1 ML/SYRINGE INTRADERM ONE; +Dexamethasone IV 4 MG/ML VIAL 1 ml VIAL IV SLOW PU ONE; +Lactated Ringers 1000 ml BAG 1,000 ML IV SCH
[2020-05-18] MEDS ORDERED: ceFAZolin 2 GM PREMIX 2 GM/50 ML BAG ONE (06:55)
[2020-05-18] MEDS ORDERED: Dexamethasone IV 4 MG/ML VIAL 1 ml VIAL ONE ×2 (06:55→07:05)
[2020-05-18] MEDS ORDERED: Ketamine HCL 50 mg/ml 10 ml VIAL (500 MG) ONE (07:04)
[2020-05-18] MEDS ORDERED: Midazolam 2 mg/2 ml VIAL 1 mg/ml 2 ml VIAL (2 mg) ONE (07:04)
[2020-05-18] MEDS ORDERED: Propofol 10 MG/ML 20 ML BTL ONE ×3 (07:05→09:43)
[2020-05-18] MEDS ORDERED: Ondansetron 4 mg VIAL 2 MG/ML 2 ml VIAL ONE (07:05)
[2020-05-18] MEDS ORDERED: Lidocaine 2% PF 5 ML VIAL ONE (07:05)
[2020-05-18] MEDS ORDERED: Ropivacaine 5 MG/ML 20 ML VIAL 0.5% (100 MG) ONE (07:30)
[2020-05-18] MEDS ORDERED: fentaNYL 100 mcg/2 ml 50 MCG/ML VIAL IV PRN (07:46)
[2020-05-18] MEDS ORDERED: Ondansetron 4 mg VIAL 2 MG/ML 2 ml VIAL IV PRN ×2 (07:46→08:50)
[2020-05-18] MEDS ORDERED: Naloxone 0.4 mg VIAL 0.4 mg/ml 1 ml VIAL IV PRN (07:46)
[2020-05-18] MEDS ORDERED: HYDROmorphone 1 MG/1 ML SYRINGE IV PRN (07:46)
[2020-05-18] MEDS ORDERED: Bupivacaine 0.5% SDV PF 30ML VIAL ONE (07:53)
[2020-05-18] MEDS ORDERED: Phenylephrine IV 10 MG/ML 1 ml VIAL ONE (08:30)
[2020-05-18] MEDS ORDERED: Magnesium Hydroxide LIQ 30 ML UDC PO PRN (08:50)
[2020-05-18] MEDS ORDERED: Ondansetron ODT 4 mg TAB 4 MG TAB PO PRN (08:50)
[2020-05-18] MEDS ORDERED: Lactulose 30 ml UDC PO PRN (08:50)
[2020-05-18] MEDS ORDERED: Morphine 2 MG/ML SYRINGE IV PRN (08:50)
[2020-05-18] MEDS ORDERED: diPHENhydraMINE IV 50 MG/ML 1 ml VIAL (BENADRYL) IV PRN (08:50)
[2020-05-18] MEDS ORDERED: diPHENhydraMINE 25 mg TAB PO PRN (08:50)
[2020-05-18] MEDS: Lactated Ringers 1000 ml BAG 1,000 ML IV SCH (12:40)
[2020-05-18] MEDS: Vitamin THERAPEUTIC TAB PO SCH (15:03)
[2020-05-18] MEDS: Magnesium Hydroxide LIQ 30 ML UDC PO SCH ×2 (15:07→21:38)
[2020-05-18] MEDS: ceFAZolin 1 GM ADVAN 1 GM in NS 0.9% 50 ML 50 ML IVPB SCH ×2 (15:11→23:34)
[2020-05-18] MEDS ORDERED: LACTATED RINGERS 500 ML BAG IV ONE (16:00)
[2020-05-19] MEDS: Lactated Ringers 1000 ml BAG 1,000 ML IV SCH (02:16)
[2020-05-19 07:05] LABS: Hematocrit 27 % (35-47); Hemoglobin 9.3 g/dL (12.0-16.0); Mean Platelet Volume 9.3 fL (7.4-10.4); Platelet Count 120 10^3/uL (150-450)
[2020-05-19 07:09] LABS: BUN/Creatinine Ratio 27.3 (8-20); Calcium 8.2 mg/dL (8.6-10.3); EGFR African American 88.4 (>60); EGFR Non-African American 73.1 (>60); Potassium 4.2 mmol/L (3.5-5.0)
[2020-05-19] MEDS: ceFAZolin 1 GM ADVAN 1 GM in NS 0.9% 50 ML 50 ML IVPB SCH (08:59)
[2020-05-19] MEDS: Magnesium Hydroxide LIQ 30 ML UDC PO SCH (09:29)
[2020-05-19] MEDS: Vitamin THERAPEUTIC TAB PO SCH (09:29)
[2020-05-19 11:23] VITALS: BP 98/51
== END 2020-05-19 13:50 | disposition home or self-care (01) ==
LOC: OR 06:11 → SSU 06:11
PROVIDERS: ADMIT Orthopaedic Surgery Adult Reconstructive Orthopaedic Surgery; ATTEND Orthopaedic Surgery Adult Reconstructive Orthopaedic Surgery

== ENCOUNTER 2021-03-15 07:25 | Observation (INO) ==
[~2021-03-15 07:25] MED LIST changes: -Dexamethasone IV 4 MG/ML VIAL 1 ml VIAL IV SLOW PU ONE
[2021-03-15] MEDS ORDERED: ceFAZolin 2 GM in NS PREMIX 2 GM/100 ML BAG IVPB ONE (08:01)
[2021-03-15] MEDS ORDERED: Dexamethasone IV 4 MG/ML VIAL 1 ml VIAL ONE (09:03)
[2021-03-15] MEDS ORDERED: Midazolam 2 mg/2 ml VIAL 1 mg/ml 2 ml VIAL (2 mg) ONE (09:03)
[2021-03-15] MEDS ORDERED: Bupivacaine 0.5% SDV PF 30ML VIAL ONE (09:05)
[2021-03-15] MEDS ORDERED: Lidocaine 1% MPF 5 ML VIAL ONE (09:05)
[2021-03-15] MEDS ORDERED: fentaNYL 100 mcg/2 ml 50 MCG/ML VIAL ONE ×2 (09:08→10:00)
[2021-03-15] MEDS ORDERED: Ropivacaine 5 MG/ML 20 ML VIAL 0.5% (100 MG) ONE (09:23)
[2021-03-15] MEDS ORDERED: diPHENhydraMINE IV 50 MG/ML 1 ml VIAL (BENADRYL) IV PRN ×2 (11:04→11:39)
[2021-03-15] MEDS ORDERED: Ondansetron ODT 4 mg TAB 4 MG TAB PO PRN (11:04)
[2021-03-15] MEDS ORDERED: Lactulose 30 ml UDC PO PRN (11:04)
[2021-03-15] MEDS ORDERED: diPHENhydraMINE 25 mg TAB PO PRN (11:04)
[2021-03-15] MEDS ORDERED: Magnesium Hydroxide LIQ 30 ML UDC PO PRN (11:04)
[2021-03-15] MEDS ORDERED: Ondansetron 4 mg VIAL 2 MG/ML 2 ml VIAL IV PRN ×2 (11:04→11:39)
[2021-03-15] MEDS ORDERED: Morphine 2 MG/ML SYRINGE IV PRN (11:04)
[2021-03-15] MEDS ORDERED: DiMENhydriNATE IV 50 mg/ml 1 ml VIAL IV PUSH PRN (11:39)
[2021-03-15] MEDS ORDERED: fentaNYL 100 mcg/2 ml 50 MCG/ML VIAL IV PRN (11:39)
[2021-03-15] MEDS ORDERED: Naloxone 0.4 mg VIAL 0.4 mg/ml 1 ml VIAL IV PRN (11:39)
[2021-03-15] MEDS: Lactated Ringers 1000 ml BAG 1,000 ML IV SCH (14:38)
[2021-03-15] MEDS: ceFAZolin 1 GM ADVAN 1 GM in NS 0.9% 50 ML 50 ML IVPB SCH (17:49)
[2021-03-15] MEDS: Magnesium Hydroxide LIQ 30 ML UDC PO SCH (21:56)
[2021-03-16] MEDS: Lactated Ringers 1000 ml BAG 1,000 ML IV SCH (01:36)
[2021-03-16] MEDS: ceFAZolin 1 GM ADVAN 1 GM in NS 0.9% 50 ML 50 ML IVPB SCH ×2 (01:36→09:46)
[2021-03-16 06:27] LABS: Hematocrit 33 % (35-47); Hemoglobin 11.2 g/dL (12.0-16.0); Mean Platelet Volume 8.8 fL (7.4-10.4); Platelet Count 132 10^3/uL (150-450)
[2021-03-16 06:43] LABS: Calcium 7.9 mg/dL (8.6-10.3); Potassium 4.1 mmol/L (3.5-5.0); eGFR CKD-EPI 89.6 (>60)
[2021-03-16] MEDS ORDERED: Vitamin THERAPEUTIC TAB PO SCH (09:00)
[2021-03-16] MEDS: Magnesium Hydroxide LIQ 30 ML UDC PO SCH (09:05)
[2021-03-16 11:46] VITALS: BP 111/63
== END 2021-03-16 15:10 | disposition home or self-care (01) ==
LOC: OR 07:25 → SSU 07:25
PROVIDERS: ADMIT Orthopaedic Surgery Adult Reconstructive Orthopaedic Surgery; ATTEND Orthopaedic Surgery Adult Reconstructive Orthopaedic Surgery